=== PATIENT | female | born 1995 | race Two or more races ===

== ENCOUNTER → 2024-09-16 | Outpatient (REF) | payer OTHER ==
[2024-09-16 22:47] LABS: Trichomonas vaginalis (AMP) NOT DETECTED (NEGATIVE)
[2024-09-16 23:11] LABS: GC DNA AMPLIFICATION NEGATIVE (NEGATIVE)
== END ==
LOC: M LAB REF 21:15
PROVIDERS: ATTEND Physician Assistant
DX: Z11.3 Encounter for screening for infections with a predominantly sexual mode of transmission (principal)

== ENCOUNTER 2024-12-30 11:59 | Inpatient (IN) | payer OTHER ==
[~2024-12-30] VITALS: Ht 162.6 cm; Wt 70.9 kg
[2024-12-30] MEDS ORDERED: AMIT25TA19 PO (12:13)
[2024-12-30] MEDS ORDERED: BUPR-597 PO (12:13)
[2024-12-30 12:35] LABS: BASO % 0.4 % (0.0-1.0); EOS % 0.1 % (0.0-3.0); HEMATOCRIT 39.5 % (36.0-47.0); HEMOGLOBIN 13.3 g/dl (12.0-15.5); LYMPH # 1.4 10^3/uL (1.5-5.0); LYMPH % 18.9 % (24.0-44.0); MEAN CORPUSCULAR HEMOGLOBIN 29.5 pg (27.0-33.0); MEAN CORPUSCULAR HGB CONC 33.7 g/dl (32.0-36.5); MEAN CORPUSCULAR VOLUME 87.6 fl (80.0-96.0); MONO # 0.4 10^3/uL (0.0-0.8); MONO % 5.1 % (2.0-8.0); NEUTROPHILS # 5.4 10^3/uL (1.5-8.5); NEUTROPHILS % 75.2 % (36.0-66.0); PLATELET COUNT, AUTOMATED 235 10^3/uL (150-450); RED BLOOD COUNT 4.51 10^6/uL (4.00-5.40); WHITE BLOOD COUNT 7.2 10^3/uL (4.0-10.0)
[2024-12-30 12:56] LABS: ETHYL ALCOHOL (ETHANOL) 0.005 % (0.000-0.010)
[2024-12-30 12:57] LABS: CPK CREATINE PHOSPHOKINASE 196 U/L (34-145)
[2024-12-30 12:58] LABS: ALBUMIN 4.3 G/DL (3.2-5.2); ALKALINE PHOSPHATASE 50 U/L (35-104); ALT/SGPT 15 U/L (7.0-40); AST/SGOT 15 U/L (<34); BILIRUBIN,DIRECT 0.3 MG/DL (<0.4); BILIRUBIN,TOTAL 0.9 MG/DL (0.3-1.2); BLOOD UREA NITROGEN 10 MG/DL (9-23); CALCIUM LEVEL 9.2 MG/DL (8.5-10.1); CARBON DIOXIDE LEVEL 25 MMOL/L (20-31); CHLORIDE LEVEL 106 MMOL/L (98-107); CREATININE FOR GFR 0.88 MG/DL (0.55-1.30); GLOMERULAR FILTRATION RATE > 60.0 (>60); GLUCOSE, FASTING 82 MG/DL (60-100); POTASSIUM SERUM 3.4 MMOL/L (3.5-5.1); SALICYLATE LEVEL < 3.0 MG/DL (<30); SODIUM LEVEL 142 MMOL/L (136-145); TOTAL PROTEIN 7.8 G/DL (5.7-8.2)
[2024-12-30 13:00] LABS: THYROID STIMULATING HORMONE 1.739 uIU/ML (0.55-4.78)
[2024-12-30 13:01] LABS: HCG, SERUM QUALITATIVE NEGATIVE (NEGATIVE)
[2024-12-30 14:41] LABS: AMPHETAMINES LEVEL URINE NEGATIVE (NEGATIVE); BARBITURATES URINE NEGATIVE (NEGATIVE); BENZODIAZEPINES URINE NEGATIVE (NEGATIVE); COCAINE METABOLITE URINE NEGATIVE (NEGATIVE); METHADONE URINE NEGATIVE (NEGATIVE); OPIATES URINE NEGATIVE (NEGATIVE); PHENCYCLIDINE URINE NEGATIVE (NEGATIVE)
[2024-12-30 14:50] LABS: CANNABINOIDS URINE POSITIVE (NEGATIVE)
[2024-12-30] MEDS ORDERED: MOM 30ML SUSPENSION UDC PO PRN (18:55)
[2024-12-30] MEDS ORDERED: diphenhydrAMINE 25MG CAP PO PRN (18:55)
[2024-12-30] MEDS ORDERED: MAALOX 30 ML SUSP *UDC PO PRN (18:55)
[2024-12-30] MEDS ORDERED: ACETAMINOPHEN 325 MG TAB PO PRN (18:55)
[2024-12-30] MEDS ORDERED: OLANZapine ORAL DISINTEGRATING TAB 5MG PO PRN (18:55)
[2024-12-30] MEDS ORDERED: LORazepam 1 MG TAB PO PRN (18:55)
[2024-12-30] MEDS ORDERED: HOME MED LIST COMPLETE! XX SCH (20:05)
[2024-12-30 20:35] VITALS: BP 120/73; TEMP 98; O2SAT 100
[2024-12-30] MEDS: traZODone 50 MG TAB PO PRN (21:03)
[2024-12-31 06:27] VITALS: BP 121/56; TEMP 98.7; O2SAT 99
[2024-12-31] MEDS: NICOTINE 14 MG/24 HR TRANSDERMAL TD SCH (08:59)
[2024-12-31] MEDS: IBUPROFEN 400MG TAB PO PRN (09:01)
[2024-12-31 14:46] VITALS: BP 100/58; TEMP 98; O2SAT 98
[2025-01-01 06:29] VITALS: BP 116/61; TEMP 97.6; O2SAT 100
[2025-01-01] MEDS ORDERED: BUPR-597 PO (07:02)
[2025-01-01 07:33] VITALS: BP 116/61; TEMP 97.6; O2SAT 100
== END 2025-01-01 10:58 | disposition home or self-care (01) | DRG 885 ==
LOC: M ED 11:59 → EDBD 11:59 → M ED INP 18:52 → M PSY 20:21
PROVIDERS: ADMIT Psychiatry & Neurology Neurology; ATTEND Psychiatry & Neurology Neurology
DX: F39 Unspecified mood [affective] disorder (principal); R45.851 Suicidal ideations; F17.290 Nicotine dependence, other tobacco product, uncomplicated; E87.6 Hypokalemia; Z81.8 Family history of other mental and behavioral disorders; Z81.1 Family history of alcohol abuse and dependence; Z79.899 Other long term (current) drug therapy

== ENCOUNTER 2025-03-17 22:39 | Emergency (ER) | payer OTHER ==
[~2025-03-17] VITALS: Ht 162.6 cm; Wt 72.7 kg
[~2025-03-17 22:39] MED LIST: AMIT25TA19 PO; BUPR-766 PO
[2025-03-17 23:13] LABS: BASO % 0.3 % (0.0-1.0); EOS % 0.4 % (0.0-3.0); HEMATOCRIT 37.8 % (36.0-47.0); HEMOGLOBIN 12.8 g/dl (12.0-15.5); LYMPH # 1.4 10^3/uL (1.5-5.0); LYMPH % 19.4 % (24.0-44.0); MEAN CORPUSCULAR HEMOGLOBIN 29.6 pg (27.0-33.0); MEAN CORPUSCULAR HGB CONC 33.9 g/dl (32.0-36.5); MEAN CORPUSCULAR VOLUME 87.5 fl (80.0-96.0); MONO # 0.4 10^3/uL (0.0-0.8); MONO % 5.9 % (2.0-8.0); NEUTROPHILS # 5.5 10^3/uL (1.5-8.5); NEUTROPHILS % 73.9 % (36.0-66.0); PLATELET COUNT, AUTOMATED 212 10^3/uL (150-450); RED BLOOD COUNT 4.32 10^6/uL (4.00-5.40); WHITE BLOOD COUNT 7.4 10^3/uL (4.0-10.0)
[2025-03-17 23:41] LABS: CALCIUM LEVEL 8.7 MG/DL (8.5-10.1); CREATININE FOR GFR 0.93 MG/DL (0.55-1.30); GLOMERULAR FILTRATION RATE 85.9 (>60); POTASSIUM SERUM 3.6 MMOL/L (3.5-5.1)
[2025-03-18] MEDS: ONDANSETRON 4MG 2ML VIAL IV ONE (06:41)
[2025-03-18] MEDS: KETOROLAC 30 MG/ML 1ML VIAL IV ONE (06:41)
[2025-03-18] MEDS ORDERED: ONDA-282 PO (07:20)
[2025-03-18 07:28] VITALS: BP 110/70; TEMP 98.2; O2SAT 100
== END 2025-03-18 07:35 | disposition home or self-care (01) ==
LOC: M ED 22:39
DX: S09.90XA Unspecified injury of head, initial encounter (principal); R55 Syncope and collapse; X58.XXXA Exposure to other specified factors, initial encounter; Y92.9 Unspecified place or not applicable; Y93.9 Activity, unspecified; Y99.9 Unspecified external cause status; Z87.820 Personal history of traumatic brain injury; F17.290 Nicotine dependence, other tobacco product, uncomplicated; Z79.899 Other long term (current) drug therapy
CPT/HCPCS: 70450; 72125; 80048; 85025; 93005; 93041; 94760; 96374; 96375; 99285; J1885; J2405

== ENCOUNTER → 2025-03-29 | Outpatient (REF) ==
[~2025-03-29] MED LIST changes: +ONDA-282 PO
== END ==
LOC: M PLAIMG 08:50
PROVIDERS: ATTEND Internal Medicine
DX: M25.531 Pain in right wrist (principal); R07.9 Chest pain, unspecified